=== PATIENT | male | born 1940 | race Caucasian/White ===

== ENCOUNTER 2023-10-17 13:34 | Inpatient (IN) | payer MEDICARE, SELFPAY ==
[2023-10-17] VITALS (25 sets, daily range): BP systolic 92–181; BP diastolic 52–109; PULSE 58–71; RESP 9–18; TEMP 35.9–36.9; O2SAT 89–97; BMI 29.7; BMI 28.1
[2023-10-17 06:49] LABS: Hematocrit 42.1 % (40-54); Hemoglobin 13.8 g/dL (13.0-16.5); Mean Corp Hgb Conc 32.8 g/dL (32-36); Mean Corpuscular Hgb 32.3 pg (27.0-32.0); Mean Corpuscular Volume 98.6 fL (80-94); Mean Platelet Vol. 10.7 fl (6.2-12.0); Platelet Count 145 K/mm3 (150-450); RBC Distribution Width SD 50.5 fl (35.1-43.9); Red Blood Count 4.27 M/mm3 (4.6-6.2); White Blood Count 9.1 K/mm3 (4.4-11.0)
[2023-10-17] MEDS: Lactated Ringers 1,000 ML 15 ML IV (06:53)
[2023-10-17 06:54] LABS: Bedside Glucose 240 mg/dL (74-106)
--- NOTE | 2023-10-17 07:14 | PRE.ANES_ITS ---
ASA Classification* ASA Classification ASA Classification: 3 Assessment & Plan Anesthesia* Anesthesia Assessment Anesthesia Assessment: Discussed sedation and/or anesthesia options, risks, benefits, and alternatives with patient/parents/legal guardian/POA. Questions invited. The patient/parents/legal guardian/POA seems to understand and agrees to proceed with anesthesia plan. Reviewed the physical assessment, medical history, allergy history and patient home medications list prior to surgery/procedure/anesthetic and documented any changes. Performed airway and anesthesia risk assessments. Anesthesia Type Anesthesia Type: General Anesthesia Focused Assessment* Temperature: 97.7 F Pulse Rate: 61 Blood Pressure: 128/61 Respiratory Rate: 16 Pulse Ox: 97 Airway Assessment Mouth opens: >3 cm Mallampati Score: II Focused Labs Anesthesia Preop lab: CBC WBC 9.1 K/mm3 (4.4-11.0) 10/17/23 05:58 RBC 4.27 M/mm3 (4.6-6.2) L 10/17/23 05:58 Hgb 13.8 g/dL (13.0-16.5) 10/17/23 05:58 Hct 42.1 % (40-54) 10/17/23 05:58 Plt Count 145 K/mm3 (150-450) L 10/17/23 05:58 CHEMISTRY POC Glucose 240 mg/dL (74-106) H 10/17/23 06:24 COAG Pre-Assessment Diagnosis/Proposed Procedure Planned Operative Procedure(s): AORTOGRAM AORTO-ILIAC STENT RIGHT FEMORAL ENDARTERECTOMY Anesthesia History Anesthesia History - advanced registered nurse: Anesthesia History - advanced registered nurse Hx Hospitalization No 09/20/23 12:46 Any Problems With Anesthesia No 09/20/23 12:46 Cholinesterase deficiency No 09/20/23 12:46 You/Your Family Experience No 09/20/23 12:46 fever (hyperthermia) with Relationship Recent Exposure to Contagious No 10/17/23 06:12 Disease Does patient have nerve No 09/20/23 12:46 stimulator Patient instructed to have device shut off --Does patient have Pacemaker No 10/17/23 06:12 or ICD? When Was Last Pacemaker Check QUESTION #4 FULL TEXT: You/Your Family Experience fever (hyperthermia) with Anesthesia Last Oral Intake Last Oral intake: Last Oral Intake NPO since 03:00 10/17/23 06:12 Meds taken in AM with sips of Yes 10/17/23 06:12 water? Meds patient instructed to take am of surgery PONV PONV - advanced registered nurse: PONV - advanced registered nurse Female No 09/20/23 12:46 HX of Motion Sickness No 09/20/23 12:46 HX of N/V After Surgery No 09/20/23 12:46 Non-Smoker Yes 09/20/23 12:46 Duration of Surgery greater Yes 09/20/23 12:46 than 60 minutes Number of Risk Factors 2 09/20/23 12:46 PONV Score Moderate Risk 09/20/23 12:46 Height & Weight Height & Weight: Anesthesia: Height & Weight Height 5 ft 10 in 10/17/23 06:12 Weight: 93.8 kg 10/17/23 06:12 Body Mass Index (BMI) 29.7 10/17/23 06:12 Respiratory Assessment Respiratory Assessment - advanced registered nurse: Respiratory Tract Infection Hx - advanced registered nurse Hx Respiratory Tract Infection No 09/20/23 12:46 STOP Sleep Apnea STOP Sleep Apnea - advanced registered nurse: STOP Sleep Apnea - advanced registered nurse Hx Hypertension Yes: CONTROLLED WITH MED 09/20/23 12:46 Hx Sleep Apnea No 09/20/23 12:46 CPAP BIPAP Do you snore loudly (louder No 09/20/23 12:46 than talking or can be heard Do you often feel tired/ No 09/20/23 12:46 fatigued/ sleepy during daytime? Has anyone observed you stop No 09/20/23 12:46 breathing during sleep? STOP Results Negative 09/20/23 12:46 QUESTION #5 FULL TEXT : Do you snore loudly (louder than talking or can be heard through closed doors)? Tobacco Use History Tobacco Use History - advanced registered nurse: Tobacco Use History - advanced registered nurse Tobacco Use Smoking Status Former smoker 09/20/23 12:46 Hx Tobacco Use No 09/20/23 12:46 Years Smoking Packs Smoked per Day Smoking Cessation Date was No - quit smoking greater 09/20/23 12:46 within the last 15 years than 15 years ago Hx Smoking Cessation Date Hx Smoking Cessation No 09/20/23 12:46 Counseling Hematologic Medial History Hematologic Hx - advanced registered nurse: Hematologic Medical Hx - wash test checker Hx of Blood Transfusion No 09/20/23 12:46 Hx of Transfusion in last 3 No 09/20/23 12:46 Months Date of Last Transfusion (if within last 3 months) Ever experience any problems No 09/20/23 12:46 with transfusion(s)? Specify any problems Hx of Preganancy in last 3 N/A 09/20/23 12:46 Months Nurse Filling Out Transfusion DSCHRIBER 09/20/23 12:46 & Questions: Date: 09/20/23 09/20/23 12:46 Time: 12:49 09/20/23 12:46 Patient unable to answer at this time (ie. confused, unrespo /Reproduction History /Reproductive History - advanced registered nurse: /Reproductive Hx- advanced registered nurse Hx Now No 09/20/23 12:46 Gestational Age (in weeks): EDC: Hx Hx Para Hx Section SAB No 09/20/23 12:46 Active Medications Active Medications: Current Medications Generic Name Dose Route Start Last Admin Trade Name Freq PRN Reason Stop Dose Admin Cefazolin Sodium 2 gm/ Sodium 110 mls @ 150 mls/hr 10/17/23 08:00 Chloride IV 10/17/23 08:43 PREOP ONE Lactated Ringer's 1,000 mls @ 15 mls/hr 10/17/23 06:00 10/17/23 06:53 IV 15 mls/hr .Q48H ANNIE Administration PFSH Medical History Wears hearing aid Wears glasses Wears dentures History of steroid therapy Diabetes History of renal disease High cholesterol Back pain Dietary restriction Former smoker Shortness of breath on exertion History of pain when walking History of edema History of echocardiogram Cardiology follow-up encounter Spinal stenosis PAD (peripheral artery disease) HTN (hypertension) Abdominal aortic stenosis CKD (chronic kidney disease) CAD (coronary artery disease) Home Medications ?Medication ?Instructions ?Recorded ?Last Taken ?Type amlodipine 5 mg tablet (Norvasc) 5 mg PO DAILY BP 07/06/23 10/17/23 03:00 History aspirin 81 mg tablet,delayed 81 mg PO DAILY HEART 07/06/23 Unknown History release (Adult Low Dose Aspirin) carvedilol 25 mg tablet (Coreg) 25 mg PO BID HEART 07/06/23 10/17/23 03:00 History cilostazol 100 mg tablet 100 mg PO BID PVD 07/06/23 Unknown History doxazosin 4 mg tablet (Cardura) 4 mg PO QHS BPH 07/06/23 Unknown History glimepiride 4 mg tablet 4 mg PO BID DIABETES 07/06/23 Unknown History lisinopril 20 mg tablet 20 mg PO DAILY BP 07/06/23 10/17/23 03:00 History lovastatin 40 mg tablet 40 mg PO QPM CHOLESTEROL 07/06/23 Unknown History Allergy/AdvReac Type Severity Reaction Status Date / Time No Known Allergies Allergy Verified 10/17/23 06:09 Family History Other Diabetes Heart disease Hypertension Kidney disease Surgical History Hx of angioplasty History of cardiac catheterization Hx of colonoscopy Hx of inguinal hernia repair Aortic valve replaced (~2022) Social History Smoking Status: Former smoker how long ago did patient quit smokin yrs Review of Systems (Anesthesia) ROS Narrative System reviewed and no additional complaints, except as documented.
--- NOTE | 2023-10-17 07:17 | HP.PCM_ITS ---
HPI - General General Date of Admission: 10/17/23 HPI Narrative COLIN LEAVITT, is a 83 M who presents with lifestyle limiting bilateral claudication that is refractory to medical and exercise therapy. He has history of bilateral common iliac stents which are patent. He had angiography and CTA at outside facility that showed infrarenal aortic stenosis and aneurysmal degeneration of the common iliac arteries around the prior stents. [facility] Medical History Wears hearing aid Wears glasses Wears dentures History of steroid therapy Diabetes History of renal disease High cholesterol Back pain Dietary restriction Former smoker Shortness of breath on exertion History of pain when walking History of edema History of echocardiogram Cardiology follow-up encounter Spinal stenosis PAD (peripheral artery disease) HTN (hypertension) Abdominal aortic stenosis CKD (chronic kidney disease) CAD (coronary artery disease) Home Medications ?Medication ?Instructions ?Recorded ?Last Taken ?Type amlodipine 5 mg tablet (Norvasc) 5 mg PO DAILY BP 07/06/23 10/17/23 03:00 History aspirin 81 mg tablet,delayed 81 mg PO DAILY HEART 07/06/23 Unknown History release (Adult Low Dose Aspirin) carvedilol 25 mg tablet (Coreg) 25 mg PO BID HEART 07/06/23 10/17/23 03:00 History cilostazol 100 mg tablet 100 mg PO BID PVD 07/06/23 Unknown History doxazosin 4 mg tablet (Cardura) 4 mg PO QHS BPH 07/06/23 Unknown History glimepiride 4 mg tablet 4 mg PO BID DIABETES 07/06/23 Unknown History lisinopril 20 mg tablet 20 mg PO DAILY BP 07/06/23 10/17/23 03:00 History lovastatin 40 mg tablet 40 mg PO QPM CHOLESTEROL 07/06/23 Unknown History Allergy/AdvReac Type Severity Reaction Status Date / Time No Known Allergies Allergy Verified 10/17/23 06:09 Family History Other Diabetes Heart disease Hypertension Kidney disease Surgical History Hx of angioplasty History of cardiac catheterization Hx of colonoscopy Hx of inguinal hernia repair Aortic valve replaced (~2022) Social History Smoking Status: Former smoker how long ago did patient quit smokin yrs ROS Constitutional Constitutional: Denies chills, fever(s), frequent falls, lethargy or weakness Eyes Eyes: Denies blind spots, change in vision or loss of vision ENT HEENT: Denies bleeding gums, hoarseness or sore throat Cardiovascular Cardiovascular: Denies abdominal pain, bluish discoloration of hand/feet, chest pain with activity, claudication, cold extremities, cyanosis, dyspnea on exertion, erythema on extremities, irregular heart rhythm, leg edema, leg ulcers, numbness in extremities or weakness in extremities Respiratory/Chest Respiratory/Chest: Denies cough, excessive phlegm production, shortness of breath at rest, shortness of breath with exertion or wheezing Gastrointestinal Gastrointestinal: Denies anorexia, change in stool character, constipation, diarrhea, melena or rectal bleeding Genitourinary Genitourinary: Denies dysuria or hematuria Musculoskeletal Musculoskeletal: Denies abnormal gait Integumentary Integumentary: Reports other Details: ; Denies erythema, non-healing lesions or wounds Neurologic Neurologic: Denies abnormal speech, focal weakness, headache(s), loss of vision, numbness, paresthesias or sensory deficit Hematologic/Lymphatic Hematologic/Lymphatic: Denies easy bleeding, easy bruising or lymphadenopathy Vital Signs Vital Signs Vital Signs: 10/17/23 06:12 10/17/23 06:12 10/17/23 07:14 Temperature 97.7 F L 97.7 F L Temperature Source Temporal Pulse Rate 61 61 Respiratory Rate 16 16 Respiratory Pattern Normal Blood Pressure 128/61 H 128/61 H Blood Pressure Mean 83 Blood Pressure Source Monitor Blood Pressure Position Semi-Fowlers Blood Pressure Location Right Arm Pulse Ox 97 97 Oxygen Delivery Method Room Air Weight Weight: 206 lb 12.697 oz Body Mass Index (BMI) 29.7 Physical Exam Const alert, oriented x3, no apparent distress and healthy appearing General Appearance: cooperative; Negative for combative or lethargic Orientation / Consciousness: awake Exam Limitations: no limitations HEENT Head and Scalp: normocephalic and atraumatic Eyes EOMs intact bilaterally General Eye: normal appearance of both eyes Neck full ROM, no lymphadenopathy and thyroid normal General: trachea midline; Negative for lymphadenopathy or tenderness Thyroid: thyroid normal Resp normal respiratory effort and no use of accessory muscles Effort and Inspection: Negative for labored, stridor or audible wheezes Cardio regular rate and regular rhythm Back/Spine Cervical Spine: cervical ROM normal Extremity full ROM, normal capillary refill and no clubbing, cyanosis or edema Skin no rashes or lesions noted and no wounds Neuro oriented x3, CN's II-XII intact bilaterally, no focal motor deficits and no sensory deficits noted Psych thought process normal, cooperative, affect normal, speech normal and activity/motor behavior normal Results Lab / Micro Data 10/17/23 05:58 Labs: Laboratory Results - last 24 hr 10/17/23 05:58: WBC 9.1, RBC 4.27 L, Hgb 13.8, Hct 42.1, MCV 98.6 H, MCH 32.3 H, MCHC 32.8, RDW Std Deviation 50.5 H, RDW Coeff of Vinny 14.0, Plt Count 145 L, MPV 10.7 10/17/23 06:24: POC Glucose 240 H Assessment & Plan Assessment/Plan (1) Bilateral iliac artery aneurysm: PLAN: -combined aneurysmal and occlusive aorto-iliac disease -plan stent graft with AFX to treat distal aortic stenosis and cover iliac aneurysms
--- NOTE | 2023-10-17 07:30 | PLAQ_PTH ---
PATIENT: COLIN LEAVITT LOC: ICU U#:[id number] AGE/SX: 83/M ROOM: [place] [address] RE10/17/[address]: Dr. Declan Pierre MD : [id number] BED: 1 DIS: 10/18/2023 SPEC #: [id number] RECD: 10/18/23 08:04 STATUS: CHAD MARCUS #: [id number] CHRIS: 10/17/23 07:[address]: Declan Pierre DEPT: SURGICAL PATHOLOGY RECD BY: Nanda Mccoy Tissues: PLAQUE Procedures: Decalcification bone/plaque Surgery Specimen Level III HEADER OPERATION: Aortrogram, Aorto-iliac stent placement PRE-OP DIAGNOSIS: [facility] TISSUE SUBMITTED: Right femoral artery plaque MICROSCOPIC DIAGNOSIS Right femoral artery plaque, endarterectomy: Calcified and focally ossified atheromatous plaque consistent with severe stenosis. AM/mr 10/23/2023 GROSS DESCRIPTION Received in fixative is one container labeled with the patient's name and designated Plaque right femoral. The specimen consists of elongated to tubular piece of mena indurated tissue measuring 5.7 cm in length and up to 1.0cm in diameter. Also present in the container are three pieces of mena-light yellow indurated tissue measuring 1.2 x 1.0 x 0.3cm. The specimen cuts with gritty sensation. River Driver sections are submitted in one cassette after decalcification. Felipe 10/18/2023 TC:5 CPT:47362,81873
[2023-10-17 08:24] LABS: Hemoglobin A1c 8.6 % (3.8-5.6)
--- NOTE | 2023-10-17 13:43 | OP.PCM_ITS ---
Report of Operation Date of Procedure: 10/17/23 Pre-Operative Diagnosis: bilateral common iliac artery aneurysms, atheroscleros is with claudication bilateral lower extremities Post-Operative Diagnosis: same Surgery/Procedure Performed:: endovascular repair bilateral common iliac aneurysms proximal aortic extension right iliac extension angioplasty/DCB right external iliac artery right common femoral endarterectomy right sartorius flap Surgeon: Declan Pierre Type of Anesthesia: General Estimated Blood Loss (mL): 350 Description of Procedure: HPI: Patient is an 83-year-old male with bilateral common iliac artery aneurysms as well as aortoiliac occlusive disease with lifestyle limiting claudication which has been refractory to medical and exercise therapy. Given the mixed etiology of his aortoiliac vascular disease taken now for endovascular treatment of the aneurysmal segments with a bifurcated stent graft in order to also treat the occlusive process simultaneously. He also has significant right common femoral artery atherosclerosis so an endarterectomy is planned. Description of procedure: Upon obtaining informed consent and verification correct patient procedure and site he was taken to the Process Improvement Consultant he was placed under general anesthesia. He was then positioned prepped and draped in usual sterile fashion and timeout was performed. Oblique incision was made over the right common femoral artery and Bovie electrocautery was dissect down through the subcutaneous tissue. Self-retaining retractor put in position further dissection carried down to the femoral sheath which was then incised vertically and self-retaining retractors moved deeper into the wound. Dissection was extended cephalad to the inguinal ligament which was freed along its inferior border allowing cephalad retraction exposing the distal external iliac artery. Sharp dissection was then used to dissect this free circumferentially and a right angle used to place a vessel loop. Dissection was then carried distally onto the femoral bifurcation however given how distal this was in the wound and inferior extension of the incision was made through the exposure. Sharp dissection was then used to dissect free proximal superficial femoral artery circumferentially and a right angle used to place a vessel loop and a soft position. The profunda artery was dissected free and or and a right angle used to place a vessel loop. The patient was then heparinized and allowed to circulate for 3 minutes after which time the distal external iliac artery outflow vessels were occluded with Vesseloops and longitudinal arteriotomy created 11 blade. The arteriotomy was then extended with Goldstein scissors proximally up to the distal external artery distally onto the proximal SFA. We then performed her endarterectomy with a freer elevator with satisfactory endpoint distally onto the SFA and the profunda origin. Distal endpoint was intact with 7-0 Prolene interrupted sutures. Bovine pericardial patch was then secured in position using a 5-0 Prolene in running fashion. Prior to completing suture line vessels were back flushed and after completing the suture line clamps removed and satisfactory stasis was noted. Puncture needle wire used to access the common femoral artery retrograde fashion with exchanged out for micropuncture sheath. Through the micropuncture sheath a Bentson wire was advanced the micropuncture sheath exchanged for a 7 Nigerian sheath. Through the 7 Nigerian sheath an angled glide catheter was utilized to navigate the prior right iliac stents and the distal for renal aortic stenosis. Once the catheter was advanced cephalad to the aortic lesions the wire was withdrawn and hand- injection subtraction angiography was performed which confirmed position within true lumen and confirmed 90% stenosis tandem lesions in the mid to distal infrarenal aorta. Next under ultrasound guidance the left common femoral artery was accessed puncture needle wire puncture sheath. Through the micropuncture sheath Bentson wire was advanced and the micropuncture sheath exchanged for 7 Nigerian sheath. Through the 7 Nigerian sheath Bentson wire and angled glide catheter were used to navigate the left iliac stent and aortic lesion advancing to position between the 2 tandem lesions. Next a short tip Amplatz was advanced via the right femoral access sheath which was then exchanged for a 17 Nigerian Endologix AFX sheath. This was then advanced into the infrarenal aorta cephalad to the areas of stenosis. An AFX bifurcated main body was then advanced through the sheath deployed in the distal aorta. A snare was then utilized via the left femoral access sheath to snare the through and through wire at which point the bifurcated component was retracted inferiorly and seated on the aortic bifurcation. The main body was then deployed into the entirety and a Q50 aortic balloon utilized to angioplasty the aortic in the right common iliac component. Next a pigtail catheter was advanced via the left femoral access sheath and positioned at the renal arteries. Subtraction angiography was performed in the location of the renal arteries marked. An aortic extension piece was then brought in field prepped for manufactures instructions. Was then advanced via the right femoral access sheath and positioned at the lowest renal artery which was the left. This was then deployed with satisfactory overlap into the bifurcated component. The Q50 balloon was then readvanced and angioplasty performed of the mid to distal infrarenal aorta. Next the Bentson wire was readvanced via the left femoral access sheath and the pigtail catheter withdrawn. A pair of 8 mm x 40 angioplasty balloons were then advanced and inflated simultaneously distal aortic stented segment as well as individually across each of the iliac limbs. An oblique view of the right iliac vessels were then performed and subtraction angiography injection via the right femoral access sheath obtained which revealed the extent of the common iliac stenosis that essentially was a thrombus filled aneurysmal segment that tapered to normal caliber at the bifurcation. The internal iliac artery was highly stenotic but patent. The left internal iliac artery was noted to be occluded on initial imaging so we felt that preserving the right internal iliac was necessary. Access sheath and angioplasty performed of the distal common iliac artery repeat angiography revealed satisfactory response of the stenosis with no residual however there was dissection at the distal aspect of the notes there was still patent antegrade flow into the internal iliac artery stent position and deployed cephalad to the origin of the internal iliac artery while still covering dissection. This was also postdilated with a 9 mm angioplasty balloon. Pigtail catheter was then readvanced into the aorta adjacent to the renal arteries and subtraction aortogram patient imaging was performed which revealed patent brisk contrast transit, brisk contrast transit through the aortic main body and into each of the preserved. Right femoral access sheath was withdrawn and the vessel occluded with Vesseloops. The arteriotomy was then repaired with 5-0 Prolene transversely. Prior to completing the suture line vessels were back flushed after completing suture line clamps removed with satisfactory stasis noted. The Mynx device was then deployed in the left femoral access sheath followed by 2 minutes of manual pressure with satisfactory stasis noted. Manual pressure was held dissection was carried laterally in the right femoral surgical field the sartorius muscle. This was then incised vertically and the sartorius muscle mobilized along its lateral edge up to the ASIS. The incision was then divided with Bovie and the muscle transposed over the femoral vessels and patch. Was then reversed with protamine for seal topical hemostatic. Satisfactory stasis was noted so the sartorius was anchored in position with a 2-0 Vicryl. The incision was then closed with 3-0 Vicryl for Monocryl and Dermabond for the skin. Patient was then taken to the anticipated admission to the intensive care unit for hemodynamic and vascular monitoring.
--- NOTE | 2023-10-17 14:21 | PCM.POST.ANE ---
Anesthesia: Postop Eval I Current Vital Signs Temperature: 98.4 F Pulse Rate: 64 Blood Pressure: 157/72 Respiratory Rate: 16 Pulse Ox: 94 Oxygen Delivery Method: Nasal Cannula Oxygen Flow Rate (L/min): 4 Assessment Airway patent: Yes Spontaneous unlabored respirations: Yes Mental status: Awake and Calm nausea: No Vomiting: No Anesthesia Complication: No Fluid Hydration Crystalloid volume administer (ml): 2,600 Blood Product volume administered (ml): 127 Total IV fluid infused: 2,727 Progress Note Anesthesia document: Postop Eval 1 completed: Yes
--- NOTE | 2023-10-17 15:04 | POSTOPAN2_ITS ---
Anesthesia Postop Eval I Sum Postop Eval Completion status Anesthesia document: Postop Eval 1 completed: Yes Anesthesia Postop Eval I Summary Anesthesia Postop Eval I Summary: Anesthesia Postop Eval I: Assessment Summary Airway patent Yes 10/17/23 14:30 IT HELP DESK [email or web address] Spontaneous unlabored Yes 10/17/23 14:30 IT HELP DESK [email or web address] respirations Mental status Awake,Calm 10/17/23 14:30 IT HELP DESK [email or web address] nausea No 10/17/23 14:30 IT HELP DESK [email or web address] Vomiting No 10/17/23 14:30 IT HELP DESK [email or web address] Anesthesia Postop Eval I: Fluid Summary Crystalloid volume administer 2,600 10/17/23 14:30 IT HELP DESK [email or web address] (ml) Colloids volume administered ( ml) Blood Product volume 127 10/17/23 14:30 IT HELP DESK [email or web address].[email or web address] administered (ml) Total IV fluid infused 2,727 10/17/23 14:30 IT HELP DESK [email or web address] Anesthesia Postop Eval I: Summary Notes Anesthesia Complication No 10/17/23 14:30 IT HELP DESK [email or web address] Anesthesia Complication Comment: Post-operative progress note Anesthesia: Postop Eval II Evaluation Mental status: Awake Pain Level: 0 nausea: No Vomiting: No Complications Anesthesia Complication: No
--- NOTE | 2023-10-17 15:04 | PCM.POSTANE2 ---
Anesthesia Postop Eval I Sum Postop Eval Completion status Anesthesia document: Postop Eval 1 completed: Yes Anesthesia Postop Eval I Summary Anesthesia Postop Eval I Summary: Anesthesia Postop Eval I: Assessment Summary Airway patent Yes 10/17/23 14:30 [email or web address] Spontaneous unlabored Yes 10/17/23 14:30 BAKERY [email or web address] respirations Mental status Awake,Calm 10/17/23 14:30 BAKERY [email or web address] nausea No 10/17/23 14:30 BAKERY [email or web address].GDOTT Vomiting No 10/17/23 14:30 BAKERY [email or web address].[email or web address] Anesthesia Postop Eval I: Fluid Summary Crystalloid volume administer 2,600 10/17/23 14:30 BAKERY [email or web address].GDOTT (ml) Colloids volume administered ( ml) Blood Product volume 127 10/17/23 14:30 BAKERY DELIVERER.GDOTT administered (ml) Total IV fluid infused 2,727 10/17/23 14:30 BAKERY [email or web address].[email or web address] Anesthesia Postop Eval I: Summary Notes Anesthesia Complication No 10/17/23 14:30 BAKERY [email or web address].GDOTT Anesthesia Complication Comment: Post-operative progress note Anesthesia: Postop Eval II Evaluation Mental status: Awake Pain Level: 0 nausea: No Vomiting: No Complications Anesthesia Complication: No
[2023-10-17 15:15] LABS: Bedside Glucose 264 mg/dL (74-106)
[2023-10-17] MEDS: 0.45% Normal Saline 1,000 ML 75 ML IV (16:18)
[2023-10-17] MEDS: Cefazolin 1 GM/50 ML BAG IV ×2 (16:18→22:46)
[2023-10-17] MEDS: BENZOCAINE/MENTHOL 1 LOZENGE MUCOUS MEM ×3 (16:40→21:25)
[2023-10-17] MEDS: Acetaminophen 500 MG Tablet 1000 MG PO ×2 (16:41→21:21)
[2023-10-17] MEDS: Clopidogrel Bisulfate 75 MG Tablet PO (16:41)
[2023-10-17] MEDS: Insulin Lispro 100 UNIT/ML INSULN.PEN SC ×2 (16:44→21:22)
[2023-10-17 16:59] LABS: Bedside Glucose 276 mg/dL (74-106)
[2023-10-17 17:27] LABS: Hematocrit 41.1 % (40-54); Hemoglobin 13.3 g/dL (13.0-16.5); Mean Corp Hgb Conc 32.4 g/dL (32-36); Mean Corpuscular Hgb 31.9 pg (27.0-32.0); Mean Corpuscular Volume 98.6 fL (80-94); Mean Platelet Vol. 10.8 fl (6.2-12.0); Platelet Count 113 K/mm3 (150-450); RBC Distribution Width SD 50.8 fl (35.1-43.9); Red Blood Count 4.17 M/mm3 (4.6-6.2); White Blood Count 12.5 K/mm3 (4.4-11.0)
[2023-10-17 17:42] LABS: Anion Gap 8 (5-15); BUN 19 mg/dL (7-18); BUN/Creat Ratio 12.3 RATIO (10-20); Calcium,Total 8.9 mg/dL (8.5-10.1); Chloride 105 mmol/L (98-107); Creatinine, Serum 1.55 mg/dL (0.70-1.30); EST Glomerular Filtration Rate 46 mL/min (>60); Est Glom Filt Rate - Afr Amer 55 mL/min (>60); Glucose 297 mg/dL (74-106); Potassium 4.7 mmol/L (3.5-5.1); Sodium Level 136 mmol/L (136-145)
[2023-10-17] MEDS: HEPARIN/D5w 25,000 UNITS 25,000 UNITS/250 ML IV.SOLN. 5 UNITS CONT INF (19:05)
[2023-10-17] MEDS: Doxazosin 4 MG Tablet PO (21:21)
[2023-10-17] MEDS: Carvedilol 25 MG Tablet PO (21:21)
[2023-10-17] MEDS: Atorvastatin Calcium 10 MG Tablet PO (21:22)
[2023-10-17 21:34] LABS: Bedside Glucose 332 mg/dL (74-106)
[2023-10-18] VITALS (15 sets, daily range): BP systolic 81–121; BP diastolic 46–64; PULSE 49–70; RESP 13–20; TEMP 36.2–36.5; O2SAT 93–98; BMI 28.8
[2023-10-18 04:44] LABS: Absolute Lymphocyte Count 1.26 X10^3/uL (0.83-4.51); Absolute Neutrophil Count 8.9 X10^3/uL (2.0-7.7); Basophil# 0.02 X10^3/uL; Basophil% 0.2 % (0-1); Hematocrit 34.7 % (40-54); Hemoglobin 11.2 g/dL (13.0-16.5); Lymphocyte # 1.26 X10^3/ul (0.83-4.51); Lymphocyte % 11.3 % (19-41); Mean Corp Hgb Conc 32.3 g/dL (32-36); Mean Corpuscular Volume 99.1 fL (80-94); Mean Platelet Vol. 10.8 fl (6.2-12.0); Monocyte# 0.86 X10^3/uL; Monocyte% 7.7 % (0-10); NRBC Flagged by Analyzer 0 % (0-5); Neutrophil # 8.88 X10^3/uL (2.7-7.7); Platelet Count 121 K/mm3 (150-450); RBC Distribution Width CV 14.4 % (11.6-14.6); RBC Distribution Width SD 51.4 fl (35.1-43.9); White Blood Count 11.1 K/mm3 (4.4-11.0)
[2023-10-18 04:58] LABS: Anion Gap 8 (5-15); BUN 23 mg/dL (7-18); BUN/Creat Ratio 13.9 RATIO (10-20); Calcium,Total 8.2 mg/dL (8.5-10.1); Chloride 103 mmol/L (98-107); Creatinine, Serum 1.65 mg/dL (0.70-1.30); EST Glomerular Filtration Rate 42 mL/min (>60); Est Glom Filt Rate - Afr Amer 51 mL/min (>60); Estimated Creatinine Clearance 38.98 ml/min; Glucose 259 mg/dL (74-106); Potassium 4.1 mmol/L (3.5-5.1); Sodium Level 135 mmol/L (136-145)
[2023-10-18] MEDS: 0.45% Normal Saline 1,000 ML 75 ML IV (05:57)
[2023-10-18] MEDS: Acetaminophen 500 MG Tablet 1000 MG PO ×2 (05:58→13:00)
[2023-10-18] MEDS: Insulin Lispro 100 UNIT/ML INSULN.PEN SC ×2 (06:00→12:03)
[2023-10-18 06:13] LABS: Partial Thromboplast Time 31.5 Seconds (24.1-36.2)
[2023-10-18 07:37] LABS: Bedside Glucose 238 mg/dL (74-106)
--- NOTE | 2023-10-18 07:45 | PCM.PN.SRG ---
Subjective Subjective Patient was seen resting comfortably in bed this morning. He complains of some numbness from his groin to his knee which is new since surgery. He has expected discomfort at the incision site, but otherwise denies any pain through his lower extremities. He has no other complaints this morning. He has not yet had a regular meal. He remained on about 2 L supplemental O2 overnight. He has not yet been out of bed to ambulate. He has been voiding without issue. Objective Data Objective Data Vital Signs: Vital Signs Temp Pulse Resp BP Pulse Ox O2 Del Method O2 Flow Rate 97.7 F L 56 L 16 113/57 L 98 Nasal Cannula 2 10/18/23 04:00 10/18/23 07:00 10/18/23 07:00 10/18/23 07:00 10/18/23 07:00 10/18/23 07:00 10/18/23 07:00 Oxygen Flow Rate (L/min) 2 Oxygen Delivery Method Nasal Cannula Weight: 212 lb 1.355 oz Body Mass Index (BMI) 28.8 Intake & Output: Intake and Output for Last 24 Hours 10/16/23 10/17/23 10/18/23 23:59 23:59 23:59 Intake Total 195.5 / 195.5 1375 / 1375 Output Total 525 / 525 Balance 195.5 / 45.5 850 / 850 Lab / Micro Data 10/18/23 04:30 10/18/23 04:30 Labs: Laboratory Results - last 24 hr 10/17/23 05:58: Hemoglobin A1c 8.6 H, Blood Type O NEGATIVE, Antibody Screen NEGATIVE 10/17/23 14:57: POC Glucose 264 H 10/17/23 16:40: POC Glucose 276 H 10/17/23 17:05: WBC 12.5 H, RBC 4.17 L, Hgb 13.3, Hct 41.1, MCV 98.6 H, MCH 31.9, MCHC 32.4, RDW Std Deviation 50.8 H, RDW Coeff of Vinny 14.0, Plt Count 113 L, MPV 10.8, Sodium 136, Potassium 4.7, Chloride 105, Carbon Dioxide 23.0, Anion Gap 8, BUN 19 H, Creatinine 1.55 H, Estim Creat Clear Calc 41.50, Est GFR (MDRD) Af Amer 55 L, Est GFR (MDRD) Non-Af 46 L, BUN/Creatinine Ratio 12.3, Glucose 297 H, Calcium 8.9 10/17/23 21:14: POC Glucose 332 H 10/18/23 04:30: WBC 11.1 H, RBC 3.50 L, Hgb 11.2 L, Hct 34.7 L, MCV 99.1 H, MCH 32.0, MCHC 32.3, RDW Std Deviation 51.4 H, RDW Coeff of Vinny 14.4, Plt Count 121 L, MPV 10.8, Immature Gran % (Auto) 0.800, Neut % (Auto) 80.0 H, Lymph % (Auto) 11.3 L, [place] % (Auto) 7.7, Eos % (Auto) 0.0, Baso % (Auto) 0.2, Absolute Neuts (auto) 8.9 H, Absolute Lymphs (auto) 1.26, Nucleated RBC % 0, Sodium 135 L, Potassium 4.1, Chloride 103, Carbon Dioxide 24.0, Anion Gap 8, BUN 23 H, Creatinine 1.65 H, Estim Creat Clear Calc 38.98, Est GFR (MDRD) Af Amer 51 L, Est GFR (MDRD) Non-Af 42 L, BUN/Creatinine Ratio 13.9, Glucose 259 H, Calcium 8.2 L 10/18/23 05:30: APTT 31.5 10/18/23 05:52: POC Glucose 238 H Physical Exam Const oriented x3 and no apparent distress Resp normal respiratory effort Cardio regular rate and regular rhythm Extremity Extremity Narrative: R groin incision site with Prevena dressing C/D/I, maintaining seal. Mild swelling, soft to palpation. No surrounding erythema, warmth. Expected tenderness. L groin puncture site with dry pressure dressing C/D/I. No significant swelling, ecchymosis, erythema, warmth, drainage. PT/DP with multiphasic doppler signals Assessment & Plan Assessment/Plan (1) PAD (peripheral artery disease): PLAN: Plan He is s/p endovascular repair bilateral iliac artery aneurysms, angioplasty/DCB R ext iliac, R common femoral endarterectomy, right sartorius flap. No signs of bleeding. Vacular exam is stable. Incision sites are satisfactory in appearance. Will advance to carb-controlled diet. Wean O2. Plan to ambulate with nursing/PT after breakfast. Anticipate discharge later today.
--- NOTE | 2023-10-18 08:06 | DS.PCM_ITS ---
Providers Date of Admission: 10/17/23 Primary Care Physician: GALE DANIELS Reason For Visit: LILIAC ANEURYSM BIKATERAL, AORTO-ILIAC DISEASE W/ Diagnosis Discharge Diagnosis (1) PAD (peripheral artery disease): Status: Acute Code(s): I73.9 - Peripheral vascular disease, unspecified Plan He is s/p endovascular repair bilateral iliac artery aneurysms, angioplasty/DCB R ext iliac, R common femoral endarterectomy, right sartorius flap. No signs of bleeding. Vacular exam is stable. Incision sites are satisfactory in appearance. Will advance to carb-controlled diet. Wean O2. Plan to ambulate with nursing/PT after breakfast. Anticipate discharge later today. Medications at Discharge Home Medications amlodipine 5 mg tablet (Norvasc) 5 mg PO DAILY BP 07/06/23 aspirin 81 mg tablet,delayed release (Adult Low Dose Aspirin) 81 mg PO DAILY HEART 07/06/23 carvedilol 25 mg tablet (Coreg) 25 mg PO BID HEART 07/06/23 cilostazol 100 mg tablet 100 mg PO BID PVD 07/06/23 doxazosin 4 mg tablet (Cardura) 4 mg PO QHS BPH 07/06/23 glimepiride 4 mg tablet 4 mg PO BID DIABETES 07/06/23 lisinopril 20 mg tablet 20 mg PO DAILY BP 07/06/23 lovastatin 40 mg tablet 40 mg PO QPM CHOLESTEROL 07/06/23 clopidogrel 75 mg tablet 75 mg PO DAILY 30 days #30 tabs 10/18/23 docusate sodium 100 mg capsule 100 mg PO BID PRN PRN Constipation 7 days #14 caps 10/18/23 oxycodone 5 mg tablet 5 mg PO Q8H PRN PRN Pain Score 4-10 5 days #15 tabs 10/18/23 Hospital Course Summary of Care Provided Hospital Course: Mr. 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 He tolerated the procedure well and postoperatively was routinely admitted to the ICU for ongoing hemodynamic and vascular monitoring. He has remained hemodynamically stable throughout his admission. His vascular exam has been stable and improved postoperatively compared to preoperatively. The right groin incision site is satisfactory in appearance with a Prevena wound VAC dressing intact and maintaining good seal. Left groin puncture site is satisfactory in appearance. No signs of bleeding. He has been tolerating a normal diet, voiding without difficulty, has been weaned off of oxygen, ambulated well with nursing with no concerns. He is medically stable and appropriate for discharge home today. Physical Exam Const oriented x3 and no apparent distress Resp normal respiratory effort Cardio regular rate and regular rhythm Extremity Extremity Narrative: R groin incision site with Prevena dressing C/D/I, maintaining seal. Mild swelling, soft to palpation. No surrounding erythema, warmth. Expected tenderness. L groin puncture site with dry pressure dressing C/D/I. No significant swelling, ecchymosis, erythema, warmth, drainage. PT/DP with multiphasic doppler signals Weight / BMI Weight Weight: 212 lb 1.355 oz Body Mass Index (BMI) 28.8 ABG / Lab / Microbiology Data 10/18/23 04:30 10/18/23 04:30 Laboratory: Laboratory Results - last 24 hr 10/17/23 05:58: Hemoglobin A1c 8.6 H, Blood Type O NEGATIVE, Antibody Screen NEGATIVE 10/17/23 14:57: POC Glucose 264 H 10/17/23 16:40: POC Glucose 276 H 10/17/23 17:05: WBC 12.5 H, RBC 4.17 L, Hgb 13.3, Hct 41.1, MCV 98.6 H, MCH 31.9, MCHC 32.4, RDW Std Deviation 50.8 H, RDW Coeff of Vinny 14.0, Plt Count 113 L, MPV 10.8, Sodium 136, Potassium 4.7, Chloride 105, Carbon Dioxide 23.0, Anion Gap 8, BUN 19 H, Creatinine 1.55 H, Estim Creat Clear Calc 41.50, Est GFR (MDRD) Af Amer 55 L, Est GFR (MDRD) Non-Af 46 L, BUN/Creatinine Ratio 12.3, Glucose 297 H, Calcium 8.9 10/17/23 21:14: POC Glucose 332 H 10/18/23 04:30: WBC 11.1 H, RBC 3.50 L, Hgb 11.2 L, Hct 34.7 L, MCV 99.1 H, MCH 32.0, MCHC 32.3, RDW Std Deviation 51.4 H, RDW Coeff of Vinny 14.4, Plt Count 121 L, MPV 10.8, Immature Gran % (Auto) 0.800, Neut % (Auto) 80.0 H, Lymph % (Auto) 11.3 L, [place] % (Auto) 7.7, Eos % (Auto) 0.0, Baso % (Auto) 0.2, Absolute Neuts (auto) 8.9 H, Absolute Lymphs (auto) 1.26, Nucleated RBC % 0, Sodium 135 L, Potassium 4.1, Chloride 103, Carbon Dioxide 24.0, Anion Gap 8, BUN 23 H, C reatinine 1.65 H, Estim Creat Clear Calc 38.98, Est GFR (MDRD) Af Amer 51 L, Est GFR (MDRD) Non-Af 42 L, BUN/Creatinine Ratio 13.9, Glucose 259 H, Calcium 8.2 L 10/18/23 05:30: APTT 31.5 10/18/23 05:52: POC Glucose 238 H D/C Instructions Discharge Diet: Carb Control Diet May shower in (days): 1 Weight Bearing Status: Weight bearing as tolerated Lifting Restricted to (Lbs): 20 Lifting Restrictions: Do not lift greater than 20 pounds Call your doctor if your incision/area has: Sudden Increased Bleeding, Increased Pain/ Swelling and Foul Smelling Discharge Call your doctor if you observe: Fever of 101 or Higher and Uncontrolled pain Remove Dressing in: 6 days Additional Instructions: You have a Prevena vacuum dressing over your Right groin incision site. This vacuum dressing is meant to stay in place for 1 week following surgery, if possible. If the unit begins to alarm or does not maintain seal and this cannot be fixed then it is okay to remove sooner. Otherwise, please remove on Monday 10/23. To remove: (1) Hold the power button until the unit turns off (the green light should go off) (2) Follow the tubing from the battery pack/unit to the small white connectors (3) Twist these connectors apart (4) You should notice the purple foam in the dressing at your groin puff up (5) Once the purple foam has puffed up, gently peel the dressing off (6) You may dispose of the entire unit and dressing in your trash at home. Your R groin incision site was closed with skin glue. Once you remove the vacuum dressing as above, you may leave this incision site open to air as this skin glue will continue to protect the incision site over the next few weeks. The glue will peel/flake off on its own over the next few weeks, please do not pick at it. The L groin puncture site is covered with a dry dressing. You may remove this tomorrow. Once you have removed this, you may leave this area open to air. You may shower. It is okay for soap and water to run over the surgical sites. Pat gently to dry. Do not submerge the incision sites such as to take a bath, go swimming, etc for 3 weeks. Do not lift greater than 20 pounds for 3 weeks. Otherwise, please proceed with activity as tolerated. You have been prescribed Plavix (Clopidogrel) 75mg tablet to be taken once daily to protect the stents that were placed during surgery. Please also continue to take your Aspirin 81mg daily as well. You have also been prescribed oxycodone 5mg tablet to be taken every 8 hours as needed for pain. You may take this with Tylenol as needed. You should not drive while you are taking this medication. You should not take this medication with other prescription pain medications. You are scheduled for follow-up in the office 11/08/23 at 1:00 PM. If you need to change this appointment or have any other questions/concerns please contact the office at [phone]. Please Follow Up With: Neelam Roque PA When: 11/08/23 at 1:00 PM Meaningful Use Info Meaningful Use Meaningful Use Diagnoses (Choose all that apply): None applicable Ischemic Stroke Statin Dosing Therapy Reference: STATIN DOSE THERAPY REFERENCE: * Patients > 75 years receive moderate or high dose statin therapy. * Patients 75 years or YOUNGER should receive HIGH intensity statin dose unless contraindicated. You will be required to document reason for non-treatment if statin daily dose does not meet guidelines. HIGH DOSE STATIN THERAPY DAILY Atorvastatin > than or = to 40 mg Rosuvastatin > than or = to 20 mg Amlodipine + Atorvastatin > than or = to 2.5/40 mg Ezetimibe + Simvastatin 10/80 mg Simvastatin 80mg Discharge Plan Admission Admit Date/Time: 10/17/23 05:38 Attending Provider: Declan Pierre Primary Care Provider: GALE DANIELS Instructions Additional Instructions / Restrictions: You have a Prevena vacuum dressing over your Right groin incision site. This vacuum dressing is meant to stay in place for 1 week following surgery, if possible. If the unit begins to alarm or does not maintain seal and this cannot be fixed then it is okay to remove sooner. Otherwise, please remove on Monday 10/23. To remove: (1) Hold the power button until the unit turns off (the green light should go off) (2) Follow the tubing from the battery pack/unit to the small white connectors (3) Twist these connectors apart (4) You should notice the purple foam in the dressing at your groin puff up (5) Once the purple foam has puffed up, gently peel the dressing off (6) You may dispose of the entire unit and dressing in your trash at home. Your R groin incision site was closed with skin glue. Once you remove the vacuum dressing as above, you may leave this incision site open to air as this skin glue will continue to protect the incision site over the next few weeks. The glue will peel/flake off on its own over the next few weeks, please do not pick at it. The L groin puncture site is covered with a dry dressing. You may remove this tomorrow. Once you have removed this, you may leave this area open to air. You may shower. It is okay for soap and water to run over the surgical sites. Pat gently to dry. Do not submerge the incision sites such as to take a bath, go swimming, etc for 3 weeks. Do not lift greater than 20 pounds for 3 weeks. Otherwise, please proceed with activity as tolerated. You have been prescribed Plavix (Clopidogrel) 75mg tablet to be taken once daily to protect the stents that were placed during surgery. Please also continue to take your Aspirin 81mg daily as well. You have also been prescribed oxycodone 5mg tablet to be taken every 8 hours as needed for pain. You may take this with Tylenol as needed. You should not drive while you are taking this medication. You should not take this medication with other prescription pain medications. You are scheduled for follow-up in the office 11/08/23 at 1:00 PM. If you need to change this appointment or have any other questions/concerns please contact the office at [phone]. Discharge Orders/Prescriptions Prescriptions: New clopidogrel 75 mg Tablet 75 mg PO DAILY 30 Days Qty: 30 5RF docusate sodium 100 mg Capsule 100 mg PO BID PRN PRN (Reason: Constipation) 7 Days Qty: 14 0RF oxycodone 5 mg Tablet 5 mg PO Q8H PRN PRN (Reason: Pain Score 4-10) 5 Days Qty: 15 0RF Continued amlodipine [Norvasc] 5 mg tablet 5 mg PO DAILY aspirin [Adult Low Dose Aspirin] 81 mg tablet,delayed release (DR/EC) 81 mg PO DAILY carvedilol [Coreg] 25 mg tablet 25 mg PO BID Rx Instructions: must administer with a meal/food cilostazol 100 mg tablet 100 mg PO BID doxazosin [Cardura] 4 mg tablet 4 mg PO QHS glimepiride 4 mg tablet 4 mg PO BID lisinopril 20 mg tablet 20 mg PO DAILY lovastatin 40 mg tablet 40 mg PO QPM Disposition Disposition (needs filled in before D/C Order can be placed): Home, Self Care
[2023-10-18] MEDS: Glimepiride 4 MG Tablet PO (08:39)
[2023-10-18] MEDS: Aspirin E.C. 81 MG Tablet PO (08:39)
[2023-10-18] MEDS: Clopidogrel Bisulfate 75 MG Tablet PO (08:39)
[2023-10-18 10:13] LABS: ACT Activated Clotting Time 256 sec (74-137)
[2023-10-18 10:13] LABS: ACT Activated Clotting Time 220 sec (74-137)
--- NOTE | 2023-10-18 11:19 | CASEMGMT ---
RN?CM?GENERAL LOT ATTENDANT?CM?to room to meet with patient for initial transition planning/care coordination?assessment.?RN?CM?introduced self and role at [facility].? Pt voices understanding and consents to?assessment?at this time.? Pt sitting up in chair in room in no distress at this time.? Pt is A/O at this time and answers all questions appropriately.?? Care providers, pharmacy, and demographics verified/updated at this time. PCP: Dr Huddleston Specialists: Dr Pierre-vascular Preferred Pharmacy: [facility] in [place] Insurance: [facility] Prescription Benefit:?yes Living Will/HPOA:?Has both LW and HCPOA, who is his sister, Kortney LNOK: Sister/HCPOAKortney Living Arrangements: Lives alone in 2-story home w/2 steps to enter. States does okay with the stairs to enter home and to go upstairs to 2nd floor where his bedroom is and also a bathroom. Could do FFSU, if needed. Independent w/ADL's and IADL's. Transportation:?Pt states drives self and states no transportation concerns at this time.?Sister will take him home @ dc. DME: ?States has the following DME:?Functioning glucometer w/supplies, BP machine. Uses no AD to ambulate. ?Pt states no need for further DME at this time.? HHC/SNF: No hx of either. No needs identified. Pt wishes to return home and states has no concerns with going home at time of discharge.? Pt voices no further concerns/needs at this time.? Pt denies need for therapy while in the hospital or as an OP. Advised pt to ask for?CM?if any further questions/concerns/needs arise.? Voices understanding. PLAN:??Home. Maksim BSN?RN?CM
[2023-10-18 11:38] LABS: ACT Activated Clotting Time 238 sec (74-137)
[2023-10-18] MEDS: BENZOCAINE/MENTHOL 1 LOZENGE MUCOUS MEM (11:57)
[2023-10-18 12:26] LABS: Bedside Glucose 190 mg/dL (74-106)
[2023-10-23 15:12] LABS: Surgical Specimen Collection SEE PATHOLOGY REPORT
== END 2023-10-18 14:27 | disposition home or self-care (01) | DRG 272 ==
LOC: ICU 10-18 14:45 → ACINP 10-18 14:45
PROVIDERS: Anesthesiology; Admitting Provider Surgery Trauma Surgery; Referring Provider Surgery Trauma Surgery; Visit Provider Surgery Trauma Surgery
PROC: 04VC3DZ Restriction of Right Common Iliac Artery with Intraluminal Device, Percutaneous Approach (ICD-10-PCS; principal; 2023-10-17 07:10)
DX: I72.3 Aneurysm of iliac artery (principal); E11.22 Type 2 diabetes mellitus with diabetic chronic kidney disease; I70.213 Atherosclerosis of native arteries of extremities with intermittent claudication, bilateral legs; I12.9 Hypertensive chronic kidney disease with stage 1 through stage 4 chronic kidney disease, or unspecified chronic kidney disease; N18.9 Chronic kidney disease, unspecified; I35.0 Nonrheumatic aortic (valve) stenosis; E78.00 Pure hypercholesterolemia, unspecified; I25.10 Atherosclerotic heart disease of native coronary artery without angina pectoris; I70.0 Atherosclerosis of aorta; Z95.2 Presence of prosthetic heart valve; Z79.82 Long term (current) use of aspirin; Z79.84 Long term (current) use of oral hypoglycemic drugs; Z79.899 Other long term (current) drug therapy; Z87.891 Personal history of nicotine dependence
CPT/HCPCS: 15738; 34705; 34709; 34713; 35371; 36200; 36245; 36246; 37220; 75625; 75716; 80048; 82962; 83036; 85025; 85027; 85347; 85730; 86850; 86900; 86901; 88304; 88311; 94668; 97802; 99252; A4648; C1769; C1773; C1894; C2623; J7120; Q9967; C1725; G0463; J2405

== ENCOUNTER → 2023-10-26 | Outpatient (CLI) | payer MEDICARE, SELFPAY ==
--- NOTE | 2023-10-26 12:26 | CT_ITS ---
We are attempting to reach an attending provider to discuss findings. An addendum with communication details will be sent when the communication is complete. EXAM: CT ANGIOGRAPHY ABDOMEN AND PELVIS WITH RUNOFF TO THE LOWER EXTREMITIES WITH INTRAVENOUS CONTRAST CLINICAL INDICATION: s/p R fem endart, EIA stenting, new pain TECHNIQUE: Helically acquired angiography images were obtained of the abdomen, pelvis and lower extremities with intravenous contrast using CTA runoff protocol. This CT exam was performed using one or more of the following dose reduction techniques: automated exposure control, adjustment of the mA and/or kV according to patient size, and/or use of iterative reconstruction technique. MIP reconstructed images were created and reviewed. CONTRAST: IV 100mL [id number] COMPARISON: No relevant prior studies available. FINDINGS: VASCULATURE: AORTA: Distal aorta is very small in caliber and the endograft measuring 5 mm in diameter just above the bifurcation. Normal caliber abdominal aorta. No occlusion or significant stenosis. No dissection. CELIAC TRUNK AND MESENTERIC ARTERIES: No acute findings. No occlusion or significant stenosis. No dissection. RENAL ARTERIES: No acute findings. No occlusion or significant stenosis. No dissection. RIGHT ILIAC ARTERIES: No acute findings. No occlusion or significant stenosis. No dissection. RIGHT FEMORAL/POPLITEAL ARTERIES: There is scattered calcific plaque in the right superficial femoral artery but there is no evidence of stenosis or occlusion. RIGHT CALF/FOOT ARTERIES: There is two-vessel runoff into the right ankle being the posterior tibial and peroneal arteries. LEFT ILIAC ARTERIES: No acute findings. No occlusion or significant stenosis. No dissection. LEFT FEMORAL/POPLITEAL ARTERIES: The left official femoral artery is occluded at its origin. There is a left superficial femoral artery stent which is occluded. There is contrast seen within the popliteal artery likely due to collateral vessels. The left popliteal artery is very small in caliber measuring 4 mm. LEFT CALF/FOOT ARTERIES: There is two-vessel runoff to the left ankle that being the posterior tibial and peroneal artery. LOWER THORAX: There are bilateral pleural effusions. No cardiomegaly. ABDOMEN: LIVER: Unremarkable. Homogeneous. No focal mass. GALLBLADDER AND BILE DUCTS: Unremarkable. No calcified gallstones. No gallbladder distention or wall edema. No intra- or extrahepatic biliary ductal dilation. PANCREAS: Unremarkable. No focal cystic or solid mass. SPLEEN: Unremarkable. Normal size without focal cystic or solid mass. ADRENALS: Unremarkable. No nodules. KIDNEYS AND URETERS: Unremarkable. Normal renal size and position. No hydronephrosis. STOMACH AND BOWEL: Unremarkable. No stomach or bowel distention. No focal inflammatory change. PELVIS: APPENDIX: No evidence of acute appendicitis. BLADDER: Unremarkable. REPRODUCTIVE: Unremarkable as visualized. No mass. ABDOMEN, PELVIS and LOWER EXTREMITIES: INTRAPERITONEAL SPACE: Unremarkable. No ascites or other fluid collection. No free air. BONES/JOINTS: Unremarkable. No suspicious lytic or blastic abnormality. SOFT TISSUES: There is a resolving hematoma in the right groin that measures 6.9 x 4.2 cm. No discrete abdominal or pelvic wall hernia. LYMPH NODES: Unremarkable. No enlarged lymph nodes. OTHER FINDINGS: There is an aortobiiliac endograft in place. CT/CTA Abd w/Runoff W/WO Contrast IMPRESSION: 1. 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 There is a left superficial femoral artery stent that is occluded. There is contrast seen within the left popliteal artery due to collateral flow. There is two-vessel runoff to the left ankle. 2. Hematoma in the soft tissues of the right groin. Scattered plaque in the right superficial femoral artery with the vessel is patent. There is two-vessel runoff to the right ankle pain the posterior tibial and peroneal arteries. Electronically Signed: Hans Mirza MD at 16:40 EDT ,
[2023-10-26 12:41] LABS: Hematocrit 31.2 % (40-54); Hemoglobin 9.9 g/dL (13.0-16.5); Mean Corp Hgb Conc 31.7 g/dL (32-36); Mean Corpuscular Hgb 32.1 pg (27.0-32.0); Mean Corpuscular Volume 101.3 fL (80-94); Mean Platelet Vol. 9.9 fl (6.2-12.0); POSITIVE COUNT YES; POSITIVE MORPHOLOGY YES; Platelet Count 194 K/mm3 (150-450); RBC Distribution Width CV 14.5 % (11.6-14.6); RBC Distribution Width SD 53.5 fl (35.1-43.9); Red Blood Count 3.08 M/mm3 (4.6-6.2); White Blood Count 8.7 K/mm3 (4.4-11.0)
[2023-10-26 13:00] VITALS: BP 143/69; PULSE 77; RESP 18; TEMP 36.6; O2SAT 94; BMI 30.1
[2023-10-26 13:00] LABS: Differential Indicated MANUAL DIFF
[2023-10-26 13:09] LABS: Anion Gap 6 (5-15); BUN 21 mg/dL (7-18); BUN/Creat Ratio 12.6 RATIO (10-20); Calcium,Total 8.5 mg/dL (8.5-10.1); Chloride 106 mmol/L (98-107); Creatinine, Serum 1.67 mg/dL (0.70-1.30); EST Glomerular Filtration Rate 42 mL/min (>60); Est Glom Filt Rate - Afr Amer 51 mL/min (>60); Estimated Creatinine Clearance 37.46 ml/min; Glucose 236 mg/dL (74-106); Potassium 4.1 mmol/L (3.5-5.1); Sodium Level 136 mmol/L (136-145)
[2023-10-26] MEDS: 0.9% Saline Lock 10 ML Syringe IV (13:09)
[2023-10-26] MEDS: 0.9% Normal Saline (500mL Bag) 500 ML IV (13:09)
[2023-10-26 14:11] VITALS: BP 105/69; PULSE 78; RESP 16; O2SAT 95
[2023-10-26 14:27] LABS: Differential Comment MANUAL
[2023-10-26 14:28] LABS: Basophil 1 % (0-1); Eosinophil 1 % (0-5); Lymphocyte 15 % (19-41); Metamyelocyte 1 % (0-1); Monocyte 5 % (0-10); Myelocyte 2 % (0-0); Neutrophil-Segmented 75 % (47-70); Total Cells Counted 100 (MANUAL DIFF)
[2023-10-26 14:29] LABS: Atypical Lymphocyte 1+ %; Reactive Lymphocyte 1+
[2023-10-26 14:30] LABS: Platelet Estimate ADEQUATE (ADEQ)
[2023-10-26 14:31] LABS: Polychromasia 1+; Red Cell Morphology NORM C+C NORMAL (NORM C&C)
[2023-10-26 14:39] LABS: Absolute Neutrophil Count 6.5 X10^3/uL (2.0-7.7)
[2023-10-27 11:02] LABS: Pathologist Review Reviewed
== END | disposition home or self-care (01) ==
PROVIDERS: Referring Provider Physician Assistant; Visit Provider Physician Assistant
DX: I70.0 Atherosclerosis of aorta (principal); E11.22 Type 2 diabetes mellitus with diabetic chronic kidney disease; I73.9 Peripheral vascular disease, unspecified; N18.9 Chronic kidney disease, unspecified
CPT/HCPCS: 36415; 75635; 80048; 85025; J7040; Q9967